=== PATIENT | female | born 1995 | race Two or more races ===

== ENCOUNTER 2017-01-12 23:03 | Inpatient (IN) | payer OTHER ==
[~2017-01-12] VITALS: Ht 160 cm; Wt 93.4 kg
[~2017-01-12 23:03] MED LIST: GNP150TA PO; PRENCAP35 PO; PROPOFOL 200 MG/20 ML AMP IV ONE; SUCCINYLCHOLINE CHLORIDE 100 MG/5 ML SYRINGE IV PUSH ONE
[2017-01-12] MEDS ORDERED: TERBUTALINE INJ 1 MG/ML AMP ONE (23:45)
--- NOTE | 2017-01-12 23:57 | PD ---
HPI Chief Complaint Contractions Date Seen: Jan 12, 2017 Time Seen: 23:55 Travel History International Travel<30 Days: No Contact w/Intl Traveler<30Days: No Known Affected Area: No History of Present Illness HPI 21-year-old female who is at 39 weeks 4 days presents with contractions. Contractions have been since last but she noticed a worsening in intensity today and decided to come in. A stent been here for approximately 7 minutes when she had a deceleration of the heart rate to the 70s that lasted for 5 minutes. Is now back up to her baseline of 140 with moderate variability. Group B strep is negative and patient denies any antepartum complications Weeks Gestation: 39 (39.4) Para: 0 : 1 History Past Medical History Medical History: Denies Significant Hx Past Surgical History Surgical History: No Previous Surgery Family History Family History: Negative Social History Alcohol Use: No Tobacco Use: No Substance Abuse: No Allergies-Medications (Allergen,Severity, Reaction): Coded Allergies: No Known Allergies (Unverified , 01/01/17) Home Meds Discontinued Scripts Ranitidine HCl (Gnp Acid Control 150 Maxi) 150 Mg Tab, 1 TAB PO DAILY, #60 BOTTLE 6 Refills Prov:Mariela HoangP 10/24/16 Without A Vit W/ Fe F (Provida Ob 20-20-1.25 mg) 1 Cap Cap, 1 TAB PO DAILY, #30 BOTTLE 11 Refills Prov:Mariela Hoang PAPERHANGER AND PAINTER 07/23/16 Review of Systems Except as stated in HPI: all other systems reviewed are Neg Physical Exam Narrative GENERAL: Well-nourished, well-developed patient. SKIN: Warm and dry. HEAD: Normocephalic and atraumatic. EYES: No scleral icterus. No injection or drainage. ENT: No nasal drainage noted. Mucous membranes pink. Airway patent. NECK: Supple, trachea midline. No JVD. CARDIOVASCULAR: Regular rate and rhythm without murmurs, gallops, or rubs. RESPIRATORY: Breath sounds equal bilaterally. No accessory muscle use. ABDOMEN/GI: Abdomen soft, non-tender, bowel sounds present, no rebound, no guarding Gravid to [-39] weeks size Fundal Height: [-] GENITOURINARY: amnisure negative External Genitalia: intact and normal in appearance BUS glands: [-Normal] Cervix: [-Posterior] Dilatation: [-1] Effacement: [50-] Station: [--4] Presentation: [Vertex-] Membranes: [intact or ruptured] Uterine Contractions: [-Irregular every 5] FHT's: Category: [-1] Baseline: [140-] Reactive: [-Moderate] Variability: [-] Decels: Prolonged deceleration to 70s for 5 minutes EXTREMITIES: No cyanosis or edema. BACK: Nontender without obvious deformity. No CVA tenderness. NEUROLOGICAL: Awake and alert. Motor and sensory grossly within normal limits. Five out of 5 muscle strength in all muscle groups. Normal speech. Data Data Vital Signs Reviewed: Yes Orders Orders Terbutaline Inj (Brethine Inj) (01/12/17 23:45) Ob (2e) Additional Admit Info (01/12/17 23:52) Group B Strep: Negative MDM Medical Record Reviewed: Yes Plan 21 yo at 39 w 3 days with false labor at term. Prolonged fhr deceleration noted with prompt return to baseline and category 1 tracing with mod reactivity Plan prolonged FHR monitoring with BPP in am, possible discharge vs induction of labor Diagnosis Diagnosis: Primary Impression: 39 weeks gestation of Additional Impressions: False labor after 37 completed weeks of gestation heart rate decelerations affecting management of mother Shirin Nava MD Jan 12, 2017 23:57
[2017-01-13] VITALS (13 sets, daily range): BP systolic 109–140; BP diastolic 56–76; PULSE 66–96; RESP 16–24; TEMP 97–98.8; O2SAT 96–100
[2017-01-13] MEDS ORDERED: SODIUM CHLORIDE 0.9% FLUSH 10 ML FLUSH IV FLUSH PRN ×2 (00:15→01:15)
[2017-01-13] MEDS ORDERED: ACETAMINOPHEN 325 MG TAB PO PRN ×2 (00:15→01:15)
[2017-01-13] MEDS ORDERED: ZOLPIDEM TARTRATE 5 MG TAB PO PRN (00:15)
[2017-01-13 00:22] LABS: HEMATOCRIT 35.6 % (35.0-46.0); MEAN CELL VOLUME 83.4 FL (80.0-100.0); MEAN CORPUSCULAR HEMOGLOBIN 28.2 PG (27.0-34.0); MEAN CORPUSCULAR HGB CONC 33.7 % (32.0-36.0); PLATELET COUNT 252 TH/MM3 (150-450); RED BLOOD COUNT 4.27 MIL/MM3 (4.00-5.30); RED CELL DISTRIBUTION WIDTH 14.8 % (11.6-17.2); REVIEW FLAG FINAL
[2017-01-13] MEDS ORDERED: ceFAZolin 2 GM PREMIX 50 ML IV SCH (00:30)
--- NOTE | 2017-01-13 00:32 | HHI.PR ---
GENERAL SCIENCE TEACHER Note Note at 39 weeks and 4 days admitted for 23 hour observation due to a 5 minute heart rate deceleration noted in triage. All the patient's having contractions they are irregular and mild with a cervical exam of 1 cm. After being placed into her room heart rate baseline was 140 with moderate variability. heart rate deceleration was noted again down to 70s for 3 minutes and the patient has had oxygen position changes and a bolus of IV fluids. Plan on section due to repetitive heart rate deceleration, patient is not in labor Shirin Nava MD Jan 13, 2017 00:32
[2017-01-13] MEDS ORDERED: ceFAZolin INJ 1,000 MG VIAL ONE (00:35)
[2017-01-13] MEDS ORDERED: OXYTOCIN 10 UNIT/ML AMP ONE (00:35)
[2017-01-13 00:36] LABS: POTASSIUM 3.8 MEQ/L (3.5-5.1)
--- NOTE | 2017-01-13 01:13 | PD.OB.DELI ---
Procedure Note Section Procedure Pre Op Diagnosis: (1) heart rate decelerations affecting management of mother (2) False labor after 37 completed weeks of gestation Post Op Diagnosis: (1) Thick meconium stained amniotic fluid Performed by Shirin Nava Procedure: Primary Low Transverse Sec Indication for delivery: Nonreassuring heart tracing Previous condition: None Informed consent obtained: For anesthesia, For procedure Confirmed correct: Time-out taken Anesthesia: Other (geta) Medication prior to procedure: Antibiotics, IV Monitoring during procedure: Blood pressure monitoring, clinical research monitor Urinary catheter: Inserted using sterile technique Sterile preparation: With 10% povidone iodine (Betadine) (splashed) Position: Supine with wedge to left side Operative Features Skin Incision: Pfannenstiel Uterine Incision: Low transverse w/knife / blunt ext Membranes Ruptured: Artificially, Amount of liquid (mod), Appearance of fluid ( thick meconium) Presentation: Occiput anterior Delivery date: Jan 13, 2017 Delivery time: 00:42 Delivery of : Uneventful : Male One Minute : 8 Five Minute : 8 Status of infant: Viable Placenta delivered: Intact Estimated blood loss: 600 Procedure tolerated: Well Maternal Condition: Stable Condition: Stable Shirin Nava MD Jan 13, 2017 01:13
[2017-01-13] MEDS ORDERED: oxyCODONE/ACETAMINOPHEN 5 MG/325 MG TAB PO PRN (01:15)
[2017-01-13] MEDS ORDERED: SIMETHICONE 80 MG CHEWABLE TAB PO PRN (01:15)
[2017-01-13] MEDS ORDERED: OXYTOCIN 30 UNITS-500ML PREMIX 500 ML IV ONE (01:15)
[2017-01-13] MEDS ORDERED: HYDROmorphone HCL PCA 6 MG/30 ML IV ONE (01:35)
[2017-01-13] MEDS ORDERED: HYDROmorphone HCL PF 2 MG/ML VIAL ONE (01:36)
[2017-01-13] MEDS ORDERED: HYDROmorphone HCL PCA 6 MG/30 ML IV SCH (02:00)
[2017-01-13] MEDS ORDERED: NALOXONE HCL 0.4 MG/ML AMP IV PUSH PRN (02:00)
--- NOTE | 2017-01-13 02:14 | RADRPT ---
EXAM DATE/TIME: 01/13/2017 01:14 [facility] COMPARISON: No previous studies available for comparison. INDICATIONS : Emergency . Possible foreign body. Instrument count. MEDICAL HISTORY : None. SURGICAL HISTORY : None. ENCOUNTER: Initial ACUITY: 1 day PAIN SCORE: Non-responsive. LOCATION: abdomen. FINDINGS: Supine view of the abdomen was performed. The abdominal bowel gas pattern is normal. No abnormal ma sses, calcifications, or organomegaly is seen. The osseous structures are unremarkable. CONCLUSION: No foreign body. Per Cardenas MD on January 13, 2017 at 2:12 Board Certified Radiologist. This report was verified electronically.
[2017-01-13 02:43] LABS: BLOOD GAS BASE EXCESS -0.2 mmol/L (-2-2); BLOOD GAS O2 HGB SATURATION 17 % (90-100); CORD BLOOD GAS HCO3 26 mmol/L (21-29); CORD BLOOD GAS PCO2 61 mmHG (34-78); CORD BLOOD GAS PH 7.26 (7.14-7.42); CORD BLOOD GAS PO2 15 mmHG (3.0-40.0)
[2017-01-13 02:44] LABS: DRAW SITE CORD BLOOD; STAT YES
[2017-01-13] MEDS ORDERED: OXYTOCIN 30 UNITS-500ML PREMIX 500 ML ONE (03:18)
[2017-01-13] MEDS ORDERED: HYDROmorphone HCL PF 0.5 MG/0.5 ML SYRINGE IV PUSH ONE (03:45)
[2017-01-13] MEDS ORDERED: PCA - TOTAL MG DILAUDID DELIVERED PER SHIFT OTHER SCH (06:00)
[2017-01-13] MEDS ORDERED: LACTATED RINGER'S 1000 ML INJ 1,000 ML IV SCH (06:15)
[2017-01-13] MEDS ORDERED: SODIUM CHLORIDE 0.9% FLUSH 10 ML FLUSH IV FLUSH SCH (09:00)
[2017-01-13] MEDS: oxyCODONE/ACETAMINOPHEN 5 MG/325 MG TAB PO PRN ×2 (10:30→16:56)
[2017-01-13] MEDS: IBUPROFEN 600 MG TAB PO PRN ×3 (10:30→23:57)
[2017-01-13] MEDS ORDERED: OXYTOCIN 30 UNITS-500ML PREMIX 500 ML IV PRN (11:15)
--- NOTE | 2017-01-13 13:00 | MP ---
cc: SHANIQUE TIM M.D. DATE OF SURGERY 01/13/2017 PREOPERATIVE DIAGNOSIS 1. 39 weeks gestation. 2. Thick meconium stained amniotic fluid. 3. Severe variable heart rate decelerations. POSTOPERATIVE DIAGNOSIS 1. 39 weeks gestation. 2. Thick meconium stained amniotic fluid. 3. Severe variable heart rate decelerations. PROCEDURE Primary low transverse section without extensions ESTIMATED BLOOD LOSS 600 cc. MEDICATIONS Ancef 2 grams given preoperatively. COUNTS Correct x3 INTRAOPERATIVE COMPLICATIONS None FINDINGS 1. Normal uterus, tubes and ovaries. 2. Thick meconium-stained amniotic fluid. 3. Infant was male vertex presentation 's were 8 and 8, weight is still pending at this time. 4. A 45-second cord clamping delay as requested by the team was performed. DESCRIPTION OF PROCEDURE The patient taken back to the operating room, prepped and draped in the usual sterile fashion, placed in the dorsal supine position. After adequate anesthetic was obtained, a Pfannenstiel incision was made in the skin, taken down to the fascia. The fascia was nicked in the midline and extended bilaterally, taken off the rectus muscles. The rectus muscles were divided in the midline. The anterior peritoneum was entered. Vesicouterine peritoneum was taken. A transverse hysterotomy incision was made, bluntly extended bilaterally. The head was delivered into the operative field. Thick meconium was noted. The rest of the body was delivered and handed off to the resuscitation team. He requested a 45-second cord clamping delay which was done and then the placenta was delivered intact and sent for histopathology. The endometrial cavity was curetted with a moist laparotomy sponge. The hysterotomy incision was repaired using running locking #1 chromic suture with good hemostasis at closure. The fascia was closed with #1 PDS, subcutaneous tissue was closed with a 3-0 plain gut and a subcuticular suture of 4-0 Vicryl. The patient tolerated the procedure well. She has taken back to the recovery room in good condition. MD JAVAD Vasquez/ANABELLE /1:17 AM /12:50 PM
[2017-01-14] MEDS: IBUPROFEN 600 MG TAB PO PRN ×3 (06:48→18:33)
[2017-01-14] MEDS: oxyCODONE/ACETAMINOPHEN 5 MG/325 MG TAB PO PRN ×3 (06:48→18:33)
[2017-01-14 06:58] LABS: AUTOMATED NEUTROPHIL # 9.1 TH/MM3 (1.8-7.7); BASOPHIL # 0.1 TH/MM3 (0-0.2); BASOPHIL % 0.7 % (0.0-2.0); EOSINOPHIL # 0.1 TH/MM3 (0-0.4); EOSINOPHIL % 0.6 % (0.0-4.0); HEMATOCRIT 32.3 % (35.0-46.0); HEMO FLAGS DIFF FINAL; LYMPH % 20.3 % (9.0-44.0); LYMPHOCYTE # 2.7 TH/MM3 (1.0-4.8); MEAN CELL VOLUME 83.7 FL (80.0-100.0); MEAN CORPUSCULAR HEMOGLOBIN 28.3 PG (27.0-34.0); MEAN CORPUSCULAR HGB CONC 33.9 % (32.0-36.0); MONO % 10.6 % (0.0-8.0); NEUT % 67.8 % (16.0-70.0); PLATELET COUNT 223 TH/MM3 (150-450); RED BLOOD COUNT 3.87 MIL/MM3 (4.00-5.30); RED CELL DISTRIBUTION WIDTH 14.7 % (11.6-17.2); WHITE BLOOD COUNT 13.5 TH/MM3 (4.0-11.0)
[2017-01-14 08:20] VITALS: BP 125/69; PULSE 87; RESP 18; TEMP 98.3; O2SAT 98
--- NOTE | 2017-01-14 08:26 | HHI.OB ---
Subjective Remarks 21 year old female s/p C/S at 39 wks gestation, POD 1. AFVSS. Patient reports she is feeling well. Bleeding is decreasing and pain is well- controlled. She is breast feeding and bonding well with baby. Ambulating without difficulties. She is tolerating a diet without nausea or vomiting. She has not had a bowel movement. She has passed gas. Denies chest pain, dysuria, shortness of breath, or calf pain. Objective Vitals/I&O Vital Signs Date Time Temp Pulse Resp B/P (MAP) Pulse Ox O2 Delivery O2 Flow Rate FiO2 01/13/17 19:12 98.2 75 16 115/60 (78) 99 01/13/17 17:00 97.6 74 18 120/76 (91) 01/13/17 12:30 98.8 75 18 122/72 (89) Result Diagram: 01/14/17 0630 01/12/17 5920 Objective Remarks GENERAL: Well-nourished, well-developed patient. CARDIOVASCULAR: Regular rate and rhythm without murmurs, gallops, or rubs. RESPIRATORY: Breath sounds equal bilaterally. No accessory muscle use. ABDOMEN/GI: Abdomen soft, non-tender, bowel sounds present. Incision: Clean, dry and intact. Fundus: Firm, non-tender at umbilicus. GENITOURINARY: Light to moderate bleeding. EXTREMITIES: No cyanosis or edema, non-tender, without signs of DVT. Medications and IVs Current Medications Medications (Trade) Dose Ordered Sig/David Route Start Time Stop Time Status Last Admin (Ambien) 5 mg HS PRN PO 01/13/17 00:15 Cefazolin Sodium/ Dextrose 50 ml @ 100 mls/hr COAL CHUTE WORKER IV 01/13/17 00:30 01/17/17 00:29 Oxytocin 500 ml @ 100 mls/hr UNSCH X1 PRN IV 01/13/17 11:15 01/14/17 11:14 (NS Flush) 2 ml BID IV FLUSH 01/13/17 09:00 (NS Flush) 2 ml UNSCH PRN IV FLUSH 01/13/17 01:15 (Mylicon Chew) 80 mg QID PRN PO 01/13/17 01:15 01/13/17 10:29 (Tylenol) 650 mg Q6H PRN PO 01/13/17 01:15 (Motrin) 600 mg Q6H PRN PO 01/13/17 01:15 01/14/17 06:48 (Percocet 5-325 Mg) 1 tab Q4H PRN PO 01/13/17 01:15 01/14/17 06:48 (Percocet 5-325 Mg) 2 tab Q4H PRN PO 01/13/17 01:15 01/13/17 23:57 (M-M-R Ii Inj) 0.5 ml ONCE ONCE SQ 01/14/17 16:00 01/14/17 16:01 (Boostrix Inj) 0.5 ml ONCE ONCE IM 01/14/17 16:00 01/14/17 16:01 (Flu (Quadrivalent) Vaccine Inj) 0.5 ml ONCE ONCE IM 01/14/17 10:00 01/14/17 10:01 Assessment/Plan Assessment and Plan 21 yo female s/p C/S for distress, POD 1 - AFVSS - Continue routine care - Motrin and Percocet PRN pain - Encourage OOB - Pelvic rest x 6 wks. Will need 1 week incision check. - Contraception: Undecided, will discuss with her SILK SCREEN PRINTER MACHINE - Anticipate D/C 01/15 or 01/16 Troy Gomez MD R2 Jan 14, 2017 08:26
[2017-01-14] MEDS ORDERED: INFLUENZA VIRUS VACCINE (QUADRIVALENT) 0.5 ML SYR IM ONE (10:00)
[2017-01-14] MEDS ORDERED: MEASLES, MUMPS, RUBELLA VACCINE 0.5 ML VIAL SQ ONE (16:00)
[2017-01-14] MEDS ORDERED: DIPHTH/TETANUS/ACEL PERTUSSIS (BOOSTER) 0.5 ML VIAL/PFS IM ONE (16:00)
[2017-01-14] MEDS: MENTHOL LOZENGE BUCCAL PRN (17:50)
[2017-01-14 20:00] VITALS: BP 120/77; PULSE 82; RESP 18; TEMP 98.7
[2017-01-15] MEDS: oxyCODONE/ACETAMINOPHEN 5 MG/325 MG TAB PO PRN ×4 (02:12→21:44)
[2017-01-15] MEDS: IBUPROFEN 600 MG TAB PO PRN ×4 (02:12→21:44)
[2017-01-15] MEDS: MENTHOL LOZENGE BUCCAL PRN (02:16)
[2017-01-15 08:35] VITALS: BP 107/68; PULSE 71; RESP 20; TEMP 97.9
--- NOTE | 2017-01-15 08:50 | HHI.OB ---
Subjective Remarks 21 year old female s/p C/S at 39 wks gestation, POD 2. AFVSS. Patient reports she is feeling well. Bleeding is decreasing and pain is well- controlled. She is bottle feeding and bonding well with baby. Ambulating without difficulties. She is tolerating a diet without nausea or vomiting. She has had a bowel movement. She has passed gas. Denies chest pain, dysuria, shortness of breath, or calf pain. Objective Vitals/I&O Vital Signs Date Time Temp Pulse Resp B/P (MAP) Pulse Ox O2 Delivery O2 Flow Rate FiO2 01/14/17 20:00 82 120/77 (91) 01/14/17 20:00 98.7 18 01/14/17 19:33 18 Result Diagram: 01/14/17 0630 01/12/17 2350 Objective Remarks GENERAL: Well-nourished, well-developed patient. CARDIOVASCULAR: Regular rate and rhythm without murmurs, gallops, or rubs. RESPIRATORY: Breath sounds equal bilaterally. No accessory muscle use. ABDOMEN/GI: Abdomen soft, non-tender, bowel sounds present. Incision: Clean, dry and intact. Fundus: Firm, non-tender at umbilicus. GENITOURINARY: Light to moderate bleeding. EXTREMITIES: No cyanosis or edema, non-tender, without signs of DVT. Medications and IVs Current Medications Medications (Trade) Dose Ordered Sig/David Route Start Time Stop Time Status Last Admin (Ambien) 5 mg HS PRN PO 01/13/17 00:15 Cefazolin Sodium/ Dextrose 50 ml @ 100 mls/hr LAND LEASE INFORMATION CLERK IV 01/13/17 00:30 01/17/17 00:29 (NS Flush) 2 ml BID IV FLUSH 01/13/17 09:00 (NS Flush) 2 ml UNSCH PRN IV FLUSH 01/13/17 01:15 (Mylicon Chew) 80 mg QID PRN PO 01/13/17 01:15 01/13/17 10:29 (Tylenol) 650 mg Q6H PRN PO 01/13/17 01:15 (Motrin) 600 mg Q6H PRN PO 01/13/17 01:15 01/15/17 08:42 (Percocet 5-325 Mg) 1 tab Q4H PRN PO 01/13/17 01:15 01/15/17 08:42 (Percocet 5-325 Mg) 2 tab Q4H PRN PO 01/13/17 01:15 01/13/17 23:57 (Mary Gonzalez) 1 lozenge UNSCH PRN BUCCAL 01/14/17 16:00 01/15/17 02:16 Assessment/Plan Assessment and Plan 21 yo female s/p C/S for distress, POD 2 - AFVSS - Continue routine care - Motrin and Percocet PRN pain - Encourage OOB - Pelvic rest x 6 wks. Will need 1 week incision check. - Contraception: Undecided, will discuss with her LAMP SHADE SEWER - Anticipate D/C 01/16 Troy Gomez MD R2 Jan 15, 2017 08:50
[2017-01-15] MEDS: SODIUM CHLORIDE 0.9% FLUSH 10 ML FLUSH IV FLUSH SCH (17:35)
[2017-01-15 19:52] VITALS: BP 116/63; PULSE 72; RESP 16; TEMP 98
[2017-01-16] MEDS: IBUPROFEN 600 MG TAB PO PRN ×2 (06:06→12:21)
[2017-01-16] MEDS: oxyCODONE/ACETAMINOPHEN 5 MG/325 MG TAB PO PRN ×2 (06:07→12:21)
[2017-01-16] MEDS ORDERED: IBUP-232 PO (07:28)
[2017-01-16] MEDS ORDERED: OXYC1TAB63 PO (07:28)
[2017-01-16] MEDS ORDERED: BREAST PUMP1 MI1 (07:28)
--- NOTE | 2017-01-16 07:28 | HHI.DCPOC ---
Discharge Care Plan Diagnosis: (1) delivery delivered Report Symptoms to Your Doctor -Temperature above 100.5 degrees -Redness, of incision or excessive or foul smelling drainage -Unusual pain or calf pain -Increased vaginal bleeding -Painful or difficulty urinating -Feelings of extreme sadness or anxiety after 2 weeks Goals to Promote Your Health * To prevent worsening of your condition and complications * To maintain your health at the optimal level Directions to Meet Your Goals Take your medications as prescribed Follow your dietary instruction Follow activity as directed Ensure plenty of rest for recovery Drink fluids for hydration Keep your appointments as scheduled Take your immunizations and boosters as scheduled If your symptoms worsen call your PCP, if no PCP go to Urgent Care Center or Emergency Room Smoking is Dangerous to Your Health. Avoid second hand smoke Call the 24-hour crisis hotline for domestic abuse at Troy Gomez MD R2 Jan 16, 2017 07:28
[2017-01-16] MEDS: SODIUM CHLORIDE 0.9% FLUSH 10 ML FLUSH IV FLUSH SCH (08:46)
--- NOTE | 2017-01-16 09:21 | HHI.OB ---
Subjective Remarks 21 year old female s/p C/S at 39 wks gestation, POD 3. AFVSS. Patient reports she is feeling well. Bleeding is decreasing and pain is well- controlled. She is breast feeding and bonding well with baby. Ambulating without difficulties. She is tolerating a diet without nausea or vomiting. She has had a bowel movement. She has passed gas. Denies chest pain, dysuria, shortness of breath, or calf pain. Objective Vitals/I&O Vital Signs Date Time Temp Pulse Resp B/P (MAP) Pulse Ox O2 Delivery O2 Flow Rate FiO2 01/15/17 19:52 98.0 72 16 116/63 (80) Result Diagram: 01/14/17 0630 01/12/17 2350 Objective Remarks GENERAL: Well-nourished, well-developed patient. CARDIOVASCULAR: Regular rate and rhythm without murmurs, gallops, or rubs. RESPIRATORY: Breath sounds equal bilaterally. No accessory muscle use. ABDOMEN/GI: Abdomen soft, non-tender, bowel sounds present. Incision: Clean, dry and intact. Fundus: Firm, non-tender at umbilicus. GENITOURINARY: Light to moderate bleeding. EXTREMITIES: No cyanosis or edema, non-tender, without signs of DVT. Medications and IVs Current Medications Medications (Trade) Dose Ordered Sig/David Route Start Time Stop Time Status Last Admin (Ambien) 5 mg HS PRN PO 01/13/17 00:15 Cefazolin Sodium/ Dextrose 50 ml @ 100 mls/hr PRESS OPERATOR ASSISTANT IV 01/13/17 00:30 01/17/17 00:29 (NS Flush) 2 ml BID IV FLUSH 01/13/17 09:00 (NS Flush) 2 ml UNSCH PRN IV FLUSH 01/13/17 01:15 (Mylicon Chew) 80 mg QID PRN PO 01/13/17 01:15 01/13/17 10:29 (Tylenol) 650 mg Q6H PRN PO 01/13/17 01:15 (Motrin) 600 mg Q6H PRN PO 01/13/17 01:15 01/16/17 06:06 (Percocet 5-325 Mg) 1 tab Q4H PRN PO 01/13/17 01:15 01/16/17 06:07 (Percocet 5-325 Mg) 2 tab Q4H PRN PO 01/13/17 01:15 01/13/17 23:57 (Mary Gonzalez) 1 lozenge UNSCH PRN BUCCAL 01/14/17 16:00 01/15/17 02:16 Assessment/Plan Assessment and Plan 21 yo female s/p C/S for distress, POD 3 - AFVSS - Continue routine care - Motrin and Percocet PRN pain - Encourage OOB - Pelvic rest x 6 wks. Will need 1 week incision check. - Contraception: Undecided, will discuss with her RESTROOMS OR LOUNGES MAID - Home today Troy Gomez MD R2 Jan 16, 2017 09:21
[2017-01-16] MEDS ORDERED: NORE0.354 PO (09:31)
== END 2017-01-16 13:00 | disposition home or self-care (01) | DRG 765 ==
LOC: HOBED 23:03 → H2EB 23:55 → H2EA 01-13 00:12 → H1EA 01-13 04:01
PROVIDERS: ADMIT Obstetrics & Gynecology Obstetrics; ATTEND Obstetrics & Gynecology Obstetrics
PROC: 10D00Z1 Extraction of Products of Conception, Low, Open Approach (ICD-10-PCS; principal; 2017-01-13)
DX: O76 Abnormality in fetal heart rate and rhythm complicating labor and delivery (principal); O47.1 False labor at or after 37 completed weeks of gestation; O77.0 Labor and delivery complicated by meconium in amniotic fluid; Z3A.39 39 weeks gestation of pregnancy; Z37.0 Single live birth; Z23 Encounter for immunization
CPT/HCPCS: 59025; 74000; 80048; 80307; 82805; 84112; 85025; 85027; 86850; 86900; 86901; 86920; 86922; 88307; 90686; J1170; J0330; J0690; J2590; J3105; J7120; Q2038